=== PATIENT | female | born 1985 | race Two or more races ===

== ENCOUNTER 2017-05-20 02:12 | Emergency (ER) | payer BC ==
[~2017-05-20] VITALS: Ht 162.6 cm; Wt 63.5 kg
[~2017-05-20 02:12] MED LIST: ACYCLOVIR; METFORMIN; PRILOSEC; TIROSINT
[2017-05-20] MEDS ORDERED: HYDROCODONE/APAP 5-325MG TABLET PO ONE (04:15)
[2017-05-20] MEDS ORDERED: HYDROCODONE/APAP 5-325MG TABLET ONE (04:49)
[2017-05-20 05:03] LABS: *BILIRUBIN,URIN NEGATIVE (NEGATIVE); *BLOOD, URINE Trace-intact (NEGATIVE); *CLARITY,URINE CLEAR (CLEAR); *COLOR,URINE YELLOW (YELLOW); *KETONES,URINE NEGATIVE (NEGATIVE); *PROTEIN,URINE NEGATIVE (NEGATIVE); *UROBILINOGEN,URINE 0.2 E.U./dl (NORMAL); LEUKOCYTE ESTERASE ,URINE 1+ (NEGATIVE); NITRITE, URINE NEGATIVE (NEGATIVE); UGLUCOSE NEGATIVE (NEGATIVE)
[2017-05-20 05:07] LABS: *URINE HCG, QUAL NEGATIVE (NEGATIVE)
[2017-05-20 05:16] LABS: BACTERIA,URINE FEW /HPF (NONE SEEN); SQUAMOUS EPITHELIAL CELL,UR FEW /HPF (NONE SEEN); WBC,URINE 20-50 /HPF (0-3)
[2017-05-20] MEDS ORDERED: CEPHALEXIN MONOHYDRATE 500 MG CAPSULE PO ONE (05:30)
--- NOTE | 2017-05-20 05:42 | NUR ---
Patient discharged to home in stable conditon. Written and verbal after care instructions given. Patient verbalizes understanding of instructions.
[2017-05-20 05:43] VITALS: BP 106/79
[2017-05-20] MEDS ORDERED: CEPHALEXIN MONOHYDRATE 500 MG CAPSULE ONE (05:48)
== END 2017-05-20 05:36 | disposition home or self-care (01) ==
LOC: ER 02:14
DX: N39.0 Urinary tract infection, site not specified (principal); K21.9 Gastro-esophageal reflux disease without esophagitis; E28.2 Polycystic ovarian syndrome; Z79.84 Long term (current) use of oral hypoglycemic drugs
CPT/HCPCS: 81001; 84703; 87077; 87086; 87186; 99284; A4663

== ENCOUNTER 2017-09-23 20:41 | Emergency (ER) | payer BC ==
[~2017-09-23] VITALS: Ht 162.6 cm; Wt 64.4 kg
--- NOTE | 2017-09-23 21:39 | NUR ---
Patient discharged to home in stable conditon. Written and verbal after care instructions given. Patient verbalizes understanding of instructions. Patient able to ambulate unassisted with a steady gait. Patient left with all personal belongings.
[2017-09-23 21:42] VITALS: BP 130/73
== END 2017-09-23 21:40 | disposition home or self-care (01) ==
LOC: ER 20:43
DX: M51.26 Other intervertebral disc displacement, lumbar region (principal); K21.9 Gastro-esophageal reflux disease without esophagitis; Z79.84 Long term (current) use of oral hypoglycemic drugs; Z79.899 Other long term (current) drug therapy
CPT/HCPCS: 99283; A4663

== ENCOUNTER 2017-11-02 00:46 | Emergency (ER) | payer BC ==
[~2017-11-02] VITALS: Ht 162.6 cm; Wt 65.8 kg
[~2017-11-02 00:46] MED LIST changes: -PRILOSEC
--- NOTE | 2017-11-02 01:27 | NUR ---
PT IN BED. PT'S VISITOR AT BEDSIDE. PT PRESENTED TO ED WITH COMPLAINT OF ABDOMINAL PAIN W/ DIARRHEA. PT DENIES VOMITING. PT ADMITS TO TAKING ONDANSETRON AND LOPERAMIDE PRIOR TO ED ARRIVAL.
[2017-11-02 02:37] LABS: *URINE HCG, QUAL NEGATIVE (NEGATIVE)
[2017-11-02 03:19] VITALS: BP 118/78
== END 2017-11-02 02:50 | disposition home or self-care (01) ==
LOC: ER 00:48
DX: A08.4 Viral intestinal infection, unspecified (principal); K21.9 Gastro-esophageal reflux disease without esophagitis; E03.9 Hypothyroidism, unspecified; Z91.040 Latex allergy status; Z79.84 Long term (current) use of oral hypoglycemic drugs; Z79.899 Other long term (current) drug therapy
CPT/HCPCS: 84703; 99283; A4663